=== PATIENT | male | born 1995 | race African-American/Black ===

== ENCOUNTER 2019-04-03 00:12 | Emergency (ER) | payer SELFPAY ==
[~2019-04-03] VITALS: Ht 180.3 cm; Wt 68.0 kg
[2019-04-03 00:20] VITALS: BP 134/76
[2019-04-03] MEDS ORDERED: SEROQUEL200 MG ORAL (00:20)
--- NOTE | 2019-04-03 00:20 | Emergency Room Report ---
History of Present Illness General Source: Patient Present Illness HPI This a 23-year-old male with a psychiatric history. He presents with chief complaint of hearing voices. He said that he has not taken his Seroquel. He is homeless and because Mu called 911. He said his voice is preventing him from sleeping. He said he just need to sleep and the voices go away. He has been in multiple hospital in the past. He does not remember which one. He denies any drugs or alcohol. No nausea no vomiting. No suicidal thoughts. Brought in by EMS with police escort. Allergies: Coded Allergies: No Known Allergies (Unverified , 04/03/19) Patient History Past Medical History: see triage record, old chart reviewed, psych hx Past Surgical History: none Pertinent Family History: none Social History: Reports: smoking Immunizations: other Reviewed Nursing Documentation: PMH: Agreed; PSxH: Agreed Review of Systems Eye: Denies: eye pain, blurred vision ENT: Denies: ear pain, nose congestion, throat swelling Respiratory: Denies: cough, shortness of breath Cardiovascular: Denies: chest pain, palpitations Gastrointestinal: Denies: abdominal pain, diarrhea, nausea, vomiting Musculoskeletal: Denies: back pain, joint pain Skin: Denies: rash Psychiatric: Reports: hallucinations Neurological: Denies: headache, numbness Endocrine: Denies: increased thirst, increased urine Hematologic/Lymphatic: Denies: easy bruising All Other Systems: negative except mentioned in HPI Physical Exam Vitals unremarkable Sp02 EP Interpretation: reviewed, normal General Appearance: well appearing, no apparent distress, alert Head: normocephalic, atraumatic Eyes: bilateral eye PERRL, bilateral eye EOMI ENT: hearing grossly normal, normal pharynx Neck: full range of motion, supple, no meningismus Respiratory: chest non-tender, lungs clear, normal breath sounds Cardiovascular #1: regular rate, rhythm, no murmur Gastrointestinal: normal bowel sounds, non tender, no mass, no organomegaly, no bruit, non-distended Musculoskeletal: back normal, normal range of motion, gait/station normal Psychiatric: other - Flat affect Medical Decision Making Diagnostic Impression: Primary Impression: Psychosis Qualified Codes: F23 - Brief psychotic disorder ER Course Patient presents with acute psychosis. No suicidal thoughts homicidal thought. He denies any alcohol. He said that he is needed dose of Seroquel and go to sleep and he will be better. He said he does not want to go to a psychiatric hospital. He does not want to go to a penitentiary. Will let him sleep it off. Status: improved Disposition: HOME, SELF-CARE Condition: Stable Additional Instructions: Follow-up with mental health in 7 days but return if worse. Prosper Aguilera MD Apr 03, 2019 00:20
--- NOTE | 2019-04-03 00:20 | NUR ---
ED Nurse Note: Pt brought in by KATELYNN RA [id number] for behavioral complaint. Pt states he is hearing voices and they are telling him to "hit heads". Pt denies wanting to harm himself or others at this time. Pt is aaox4, no cardiac or respiratory distress noted, ambulatory with steady gait. Pt also requesting seroquel to sleep.
--- NOTE | 2019-04-03 00:25 | NUR ---
ED Nurse Note: Although pt is aaox4, able to answer all questions. Pt is still very restless and presents with bizarre behavior. No aggression noted at this time, cooperative.
[2019-04-03] MEDS ORDERED: QUEtiapine 200mg tab ORAL ONE (00:30)
[2019-04-03 01:15] VITALS: BP 128/80
--- NOTE | 2019-04-03 01:15 | NUR ---
ER DISCHARGE NOTE: Patient is cleared to be discharged per ERMD, pt is aox4, on room air, with stable vital signs. pt was given dc instructions, pt was able to verbalize understanding, pt id band removed. Pt refused to disclose plan after discharge. pt is able to ambulate with steady gait. pt took all belongings.
== END 2019-04-03 01:15 | disposition home or self-care (01) ==
LOC: EDBD 00:12 → EMR 00:24
DX: F23 Brief psychotic disorder (principal); F17.200 Nicotine dependence, unspecified, uncomplicated
CPT/HCPCS: 99282